=== PATIENT | female | born 1980 | race African-American/Black ===

== ENCOUNTER 2019-05-22 05:45 | Inpatient (IN) | payer OTHER ==
[2019-05-19 10:37] LABS: BASOPHILS % (AUTO) 0.8 % (0.0-2.0); BILIRUBIN,URINE NEGATIVE (NEGATIVE); CLARITY/URINE CLEAR (CLEAR); COLOR,URINE YELLOW (YELLOW); EOSINOPHILS % (AUTO) 0.2 % (0.0-4.0); GLUCOSE,URINE NEGATIVE (NEGATIVE); HEMATOCRIT 30.2 % (36-48); HEMOGLOBIN 9.4 g/dL (12.0-16.0); KETONES,URINE NEGATIVE (NEGATIVE); LEUKOCYTE ESTERASE ,URINE NEGATIVE (NEGATIVE); LYMPHOCYTES # (AUTO) 1.5 K/uL (1.0-5.5); MEAN CORPUSCULAR HEMOGLOBIN 23 pg (27-31); MEAN CORPUSCULAR HGB CONC 31 % (32-36); MEAN CORPUSCULAR VOLUME 75 fL (79.0-98.0); MONOCYTES # (AUTO) 0.6 K/uL (0.0-1.0); NEUTROPHILS # (AUTO) 3.2 K/uL (1.8-7.7); NITRITE, URINE NEGATIVE (NEGATIVE); PH,URINE 6.5 (5.0-8.0); PLATELET COUNT (AUTO) 257 K/uL (130-430); PROTEIN URINE NEGATIVE (NEGATIVE); RED BLOOD CELL COUNT(AUTO) 4.01 MIL/uL (4.2-6.2); RED CELL DISTRIBUTION WIDTH 20.5 % (9.0-15.0); UROBILINOGEN,URINE 0.2 (0.2-1.0); WHITE BLOOD COUNT (AUTO) 5.3 K/uL (4.8-10.8)
[2019-05-19 10:44] LABS: BLOOD, URINE TRACE (NEGATIVE)
[2019-05-19 10:46] LABS: BACTERIA,URINE FEW /HPF (None Seen); RBC,URINE 0-3 /HPF (0-3); WBC,URINE 0-3 /HPF (0-3)
[2019-05-19 10:54] LABS: CALCIUM 7.9 mg/dL (8.4-11.0); CREATININE 1.05 mg/dL (0.55-1.30); POTASSIUM 3.6 mmol/L (3.5-5.1)
[~2019-05-22] VITALS: Ht 160 cm; Wt 106.1 kg
[2019-05-22] MEDS ORDERED: CEFAZOLIN 1 GM IVPB PREMIX 50 ML IV ONE (07:00)
[2019-05-22] MEDS ORDERED: PRED20TA PO (08:34)
[2019-05-22] MEDS ORDERED: GABA300S PO (08:34)
[2019-05-22] MEDS ORDERED: VALA500T PO (08:34)
[2019-05-22] MEDS: LR 1,000 ML IV SCH ×2 (10:31→18:57)
[2019-05-22] MEDS ORDERED: SIMETHICONE 80 MG TAB.CHEW PO PRN (10:45)
[2019-05-22] MEDS ORDERED: OXYCODONE/ACETAMINOPHEN 5-325 TABLET PO PRN (10:45)
[2019-05-22] MEDS ORDERED: ONDANSETRON HCL 4 MG/2 ML VIAL IVP PRN (10:45)
[2019-05-22] MEDS ORDERED: IBUPROFEN 800 MG TABLET PO PRN (10:45)
[2019-05-22] MEDS ORDERED: LR 1,000 ML IV SCH (11:16)
[2019-05-22] MEDS: hydrALAZINE HCL 20 MG/ML VIAL IVP PRN ×2 (11:20→11:28)
[2019-05-22] MEDS ORDERED: METOCLOPRAMIDE HCL 10 MG/2 ML VIAL IVP PRN (11:30)
[2019-05-22] MEDS ORDERED: HYDROmorphone 2 MG/ML VIAL IVP PRN (11:30)
[2019-05-22] MEDS ORDERED: HYDROmorphone 1 MG INJ. 1 MG/ML AMPUL IVP PRN ×2 (11:30)
[2019-05-22] MEDS ORDERED: hydrALAZINE HCL 20 MG/ML VIAL ONE (11:31)
[2019-05-22 12:00] VITALS: BP_SYST 148
[2019-05-22 12:16] VITALS: BP_SYST 141
[2019-05-22] MEDS: OXYCODONE/ACETAMINOPHEN 5-325 TABLET PO PRN ×2 (12:42→20:29)
[2019-05-22 15:42] VITALS: BP_SYST 141
[2019-05-22] MEDS ORDERED: MORPHINE 2 MG/ML INJ. SYRINGE IVP ONE (15:45)
[2019-05-22] MEDS: ONDANSETRON HCL 4 MG/2 ML VIAL IVP PRN (16:28)
[2019-05-22] MEDS ORDERED: SENNOSIDES/DOCUSATE SODIUM 1 TAB TABLET(SENOKOT-S) PO PRN ×2 (21:00)
[2019-05-22] MEDS ORDERED: TEMAZEPAM 15 MG CAPSULE PO PRN (21:00)
[2019-05-22 21:16] VITALS: BP_SYST 137
[2019-05-23] MEDS: LR 1,000 ML IV SCH ×3 (04:29→15:12)
[2019-05-23] MEDS: OXYCODONE/ACETAMINOPHEN 5-325 TABLET PO PRN ×2 (04:30→08:47)
[2019-05-23 04:39] VITALS: BP_SYST 138
[2019-05-23 05:53] LABS: HEMATOCRIT 27.3 % (36-48); HEMOGLOBIN 8.6 g/dL (12.0-16.0)
[2019-05-23 08:14] VITALS: BP_SYST 147
[2019-05-23] MEDS: ONDANSETRON HCL 4 MG/2 ML VIAL IVP PRN (08:46)
[2019-05-23 12:00] VITALS: BP_SYST 142
[2019-05-23 16:18] VITALS: BP_SYST 139
[2019-05-23 18:36] VITALS: BP_SYST 139
[2019-05-24] MEDS ORDERED: PREDNISONE 20 MG TABLET PO SCH (09:00)
== END 2019-05-23 18:55 | disposition home or self-care (01) | DRG 743 ==
LOC: SMU 05:45 → SDS 05:45 → EDSTATUS 07:30 → SDS 12:30 → SMU 12:31
PROVIDERS: ADMIT Obstetrics & Gynecology; ATTEND Obstetrics & Gynecology
PROC: 0UT70ZZ Resection of Bilateral Fallopian Tubes, Open Approach (ICD-10-PCS; 2019-05-22)
PROC: 0UT90ZZ Resection of Uterus, Open Approach (ICD-10-PCS; principal; 2019-05-22 07:30)
DX: D25.9 Leiomyoma of uterus, unspecified (principal)
CPT/HCPCS: 36415; 80048; 81000-TC; 84703; 85018-TC; 85025; 86886; 86900; 86901; 87081; 88302; 88305; 88307; J0360; J0690; J2270; J2405; J7120